=== PATIENT | male | born 1965 | race Caucasian/White ===

== ENCOUNTER 2021-09-20 16:14 | Emergency (ER) | payer OTHER ==
[~2021-09-20 16:14] MED LIST: ASPIR 8181 MG PO; CARDIZEM 30MG T30 MG PO; CARDIZEM LA120 MG PO; GLUCOPHAGE 500500 MG PO; KLONOPIN TAB 00.5 MG PO; LIPITOR TAB 2020 MG PO; LISINOPRIL5 MG PO; NITROSTAT 0.40.4 MG SL; NORCO 10-325 T1 EACH PO; OMEPRAZOLE20 MG PO; XARELTO10 MG PO
[2021-09-20 17:19] LABS: HEMOGLOBIN 15.6 gm/dl (14.0-17.5); RED BLOOD COUNT 5.22 M/UL (4.20-5.50); WHITE BLOOD COUNT 8.6 K/UL (4.5-11.0)
== END 2021-09-20 18:55 | disposition home or self-care (01) ==
LOC: ER1 16:14
PROVIDERS: Emergency Medicine
DX: R55 Syncope and collapse (principal); N28.9 Disorder of kidney and ureter, unspecified
CPT/HCPCS: 71045; 80053; 81001; 83605; 83735; 84100; 85025; 87040; 87086; 99284; J7030